=== PATIENT | male | born 1930 | race Caucasian/White ===

== ENCOUNTER 2018-09-15 19:00 | Inpatient (IN) | payer MEDICARE | END 2018-09-21 16:50 | LOC: EDH 19:00 → EDHIP 21:35 → 3BH 22:13 | DX: T83.511A Infection and inflammatory reaction due to indwelling urethral catheter, initial encounter (principal); A41.9 Sepsis, unspecified organism; E43 Unspecified severe protein-calorie malnutrition; N39.0 Urinary tract infection, site not specified; K56.41 Fecal impaction; E11.9 Type 2 diabetes mellitus without complications; R53.81 Other malaise; K40.90 Unilateral inguinal hernia, without obstruction or gangrene, not specified as recurrent; B96.89 Other specified bacterial agents as the cause of diseases classified elsewhere; Z79.4 Long term (current) use of insulin; Y84.6 Urinary catheterization as the cause of abnormal reaction of the patient, or of later complication, without mention of misadventure at the time of the procedure; Z68.21 Body mass index [BMI] 21.0-21.9, adult ==